=== PATIENT | male | born 1950 | race Caucasian/White ===

== ENCOUNTER 2022-06-02 08:26 | Day surgery (SDC) | payer MEDICARE, OTHER ==
[~2022-06-02] VITALS: Ht 177.8 cm; Wt 145.9 kg
[~2022-06-02 08:26] MED LIST: ASPI325 PO; CIPR500; DIAZ5 PO; HYDACE5 PO; MECL25 PO; NAPR500 PO; SIMV20 PO; SIMV5 PO; TRIHYD253A PO
[2022-06-02] MEDS ORDERED: Lovastatin10 MG PO (08:46)
[2022-06-02] MEDS ORDERED: Carvedilol12.5 MG PO (08:46)
--- NOTE | 2022-06-02 08:53 | NUR ---
06/02/22 0853 Franklin Rebolledo CALL MAYTE WITHIN REACH. TETRACAINE AT 0842 IN RIGHT EYE AND PLEDGETT AT 0844
== END 2022-06-02 10:18 | disposition home or self-care (01) ==
LOC: ORSCSDS 08:26
PROVIDERS: Student in an Organized Health Care Education/Training Program
PROC: 08RJ3JZ Replacement of Right Lens with Synthetic Substitute, Percutaneous Approach (ICD-10-PCS; principal; 2022-06-02 09:45)
DX: H25.11 Age-related nuclear cataract, right eye (principal); Z86.73 Personal history of transient ischemic attack (TIA), and cerebral infarction without residual deficits; G47.33 Obstructive sleep apnea (adult) (pediatric); E66.01 Morbid (severe) obesity due to excess calories; Z68.42 Body mass index [BMI] 45.0-49.9, adult; Z79.899 Other long term (current) drug therapy; Z79.82 Long term (current) use of aspirin
CPT/HCPCS: J2001; J2250; J3010; J7040; V2632

== ENCOUNTER 2023-03-28 20:45 | Emergency (ER) | payer MEDICARE, OTHER ==
[~2023-03-28] VITALS: Ht 177.8 cm; Wt 145.2 kg
[~2023-03-28 20:45] MED LIST changes: +Carvedilol12.5 MG PO; +Lovastatin10 MG PO
[2023-03-28 20:49] VITALS: BP 175/102
== END 2023-03-29 01:07 | disposition home or self-care (01) ==
LOC: ER 20:45
DX: S90.862A Insect bite (nonvenomous), left foot, initial encounter (principal); Z88.6 Allergy status to analgesic agent; Z91.018 Allergy to other foods; Z86.73 Personal history of transient ischemic attack (TIA), and cerebral infarction without residual deficits; Z79.82 Long term (current) use of aspirin; W57.XXXA Bitten or stung by nonvenomous insect and other nonvenomous arthropods, initial encounter
CPT/HCPCS: 99282

== ENCOUNTER → 2024-04-19 | Outpatient (CLI) | payer MEDICARE, OTHER | END | disposition home or self-care (01) | LOC: LAB 11:33 → LAB SHORT 11:33 | DX: R30.0 Dysuria (principal) | CPT/HCPCS: 87077; 87086; 87186 ==

== ENCOUNTER → 2024-06-13 | Outpatient (CLI) | payer MEDICARE, OTHER | LOC: LAB 14:51 → LAB SHORT 14:51 | DX: N39.0 Urinary tract infection, site not specified (principal) | CPT/HCPCS: 87077; 87086; 87186 ==

== ENCOUNTER → 2024-11-01 | Outpatient (CLI) | payer MEDICARE, OTHER | LOC: LAB SHORT 16:44 → LAB 16:44 | DX: N39.0 Urinary tract infection, site not specified (principal) | CPT/HCPCS: 87077; 87086; 87186 ==